=== PATIENT | female | born 1965 | race Caucasian/White ===

== ENCOUNTER 2019-11-27 22:04 | Emergency (ER) | payer OTHER ==
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
--- NOTE | 2019-11-29 10:47 | CR ---
Tibia Fibula Lt portable CLINICAL HISTORY: Proximal tibial pain FINDINGS: Two views show no evidence of fracture or bone destruction. No soft tissue abnormality is seen. Impression: Negative
== END 2019-11-28 00:08 | disposition home or self-care (01) ==
LOC: JP.ED 22:04
DX: M79.662 Pain in left lower leg (principal); E66.9 Obesity, unspecified; Z79.899 Other long term (current) drug therapy; Z68.37 Body mass index [BMI] 37.0-37.9, adult
CPT/HCPCS: 73590-26-LT; 73590-LT; 99283-25